=== PATIENT | male | born 1985 | race Two or more races ===

== ENCOUNTER → 2024-04-03 | Day surgery (SDC) | payer BC, MEDICAID ==
[~2024-04-03] VITALS: Ht 180.3 cm; Wt 127.0 kg
[~2024-04-03] MED LIST: ACCU-CHEK COMFORT CURVE STRIP VI ONE; CELE200C PO; DULA4.5I SC; GLIP5TAB21 PO; HYDROmorphone HCL 2 MG/ML VL/or syr IV PRN; KETAMINE 50mg/ML 1ml syringe ONE; LEV50T PO; METF-370 PO; METOCLOPRAMIDE HCL 5MG/ml INJ 2ml VIAL IV ONE; MIDAZOLAM HCL 2MG/2ML 2ml VIAL (1mg/ml) ONE; MORPHINE SULFATE INJ 2 MG/ml SYRG IV PRN; OMEP20TA PO; ONDANSETRON HCL 4 MG/2 ML VIAL ONE; OXCA600T3 PO; PROPOFOL 10 MG/ML 20 ML IV ONE; SODIUM CHLORIDE LOCK 10 ML ONE; fentaNYL CITRATE 100 MCG/2 ML VL IV PRN; fentaNYL CITRATE 100 MCG/2 ML VL ONE
[2024-04-03 09:46] VITALS: TEMP 97.9; O2SAT 98
[2024-04-03 10:16] VITALS: BP 129/90; PULSE 84; RESP 19; O2SAT 98
[2024-04-03] MEDS: LIDOCAINE VISCOUS 2% 15ML UD ONE (12:37)
== END | disposition home or self-care (01) ==
LOC: GI 07:53
PROVIDERS: ATTEND Internal Medicine Gastroenterology
DX: R94.5 Abnormal results of liver function studies (principal); K31.A0 Gastric intestinal metaplasia, unspecified; K22.70 Barrett's esophagus without dysplasia; R10.9 Unspecified abdominal pain; R10.13 Epigastric pain; R10.11 Right upper quadrant pain; K31.89 Other diseases of stomach and duodenum; I10 Essential (primary) hypertension; J45.909 Unspecified asthma, uncomplicated; E11.9 Type 2 diabetes mellitus without complications; E03.9 Hypothyroidism, unspecified; F17.210 Nicotine dependence, cigarettes, uncomplicated; F20.9 Schizophrenia, unspecified; E66.9 Obesity, unspecified; Z68.39 Body mass index [BMI] 39.0-39.9, adult; Z79.84 Long term (current) use of oral hypoglycemic drugs; Z79.899 Other long term (current) drug therapy; Z90.49 Acquired absence of other specified parts of digestive tract; Z98.890 Other specified postprocedural states
CPT/HCPCS: 43239; 82962; 88305; 88312; 88342; J2250; J2405; J2704; J3010; J7030